=== PATIENT | female | born 1935 | race Caucasian/White ===

== ENCOUNTER 2025-10-15 09:33 | Inpatient (IN) | payer OTHER, MEDICAID ==
[~2025-10-15] VITALS: Ht 195.6 cm; Wt 49.4 kg
[2025-10-15] VITALS (54 sets, daily range): BP systolic 44–144; BP diastolic 26–123; PULSE 60–74; RESP 8–28; TEMP 36.3068–36.7; O2SAT 78–97
[2025-10-15] MEDS: ONDANSETRON HCL 4MG/2ML INJ IV ONE (10:10)
[2025-10-15] MEDS: MORPHINE SULFATE 4 MG/ML INJ (FOR IV/IM USE) IV ONE (10:10)
[2025-10-15 10:16] LABS: BASOPHILS % 2.2 % (0.0-2.0); EOSINOPHILS % 0.5 % (0.0-5.0); HEMATOCRIT. 36.2 % (36.0-48.0); HEMOGLOBIN. 11.3 g/dL (12.0-16.0); LYMPHOCYTES % 24.2 % (20.0-50.0); MEAN PLATELET VOLUME 9.7 fl (7.4-10.4); MONOCYTES % 6.8 % (2.0-8.0); NEUTROPHILS % 66.3 % (40.0-76.0); PLATELET 82 x1000/uL (130-400); RED BLOOD CELL COUNT 3.57 mill/uL (4.2-5.4); RED CELL DISTRIBUTION WIDTH 16.5 % (11.6-14.6)
[2025-10-15] MEDS: SODIUM CHLORIDE 0.9% 1,000 ML IV ONE (10:22)
[2025-10-15 10:31] LABS: INR 1.1
[2025-10-15 10:32] LABS: CREATININE 1.1 mg/dL (0.6-1.0); ETHANOL BLOOD < 10 mg/dL (<10); UREA NITROGEN BLOOD 28 mg/dL (9-23)
[2025-10-15 10:33] LABS: PROTEIN TOTAL 7.5 g/dL (6.0-8.3); TROPONIN I HIGH SENSITIVITY 16 ng/L (3.0-34)
[2025-10-15 10:34] LABS: ASPARTATE AMINOTRANSFERASE 30 IU/L (<34); BILIRUBIN DIRECT 0.2 mg/dL (<=3.0); BILIRUBIN TOTAL 0.8 mg/dL (0.1-1.0)
[2025-10-15] MEDS: IOHEXOL-350 100 ML BOTTLE ONE ×2 (10:53→12:29)
[2025-10-15] MEDS: NOREPINEPHRINE 8MG/250ML PMX 250 ML IV ONE (12:06)
[2025-10-15 13:29] LABS: PLATELET 82 x1000/uL (130-400); RED BLOOD CELL COUNT 3.55 mill/uL (4.2-5.4); RED CELL DISTRIBUTION WIDTH 16.5 % (11.6-14.6)
[2025-10-15] MEDS: CEFTRIAXONE 1GM/50ML 50 ML IV ONE (13:54)
[2025-10-15 14:05] LABS: TROPONIN I HIGH SENSITIVITY 20 ng/L (3.0-34)
[2025-10-15] MEDS: NOREPINEPHRINE 8MG/250ML PMX 250 ML IV PRN (16:27)
[2025-10-15] MEDS ORDERED: PHENYLEPHRINE 50MG/250ML PMX 250 ML IV PRN (16:30)
[2025-10-15] MEDS ORDERED: ACETAMINOPHEN 325MG TABLET PO PRN ×2 (16:45)
[2025-10-15] MEDS ORDERED: IPRATROPIUM/ALBUTEROL 0.5-3(2.5)MG/3ML NEB HHN PRN (16:45)
[2025-10-15] MEDS ORDERED: DOCUSATE SODIUM 100MG CAPSULE PO PRN (16:45)
[2025-10-15] MEDS ORDERED: MAGNESIUM/ALUMINUM HYDROXIDE/SIMETHICONE 30ML UDC PO PRN (16:45)
[2025-10-15] MEDS ORDERED: MORPHINE SULFATE 4 MG/ML INJ (FOR IV/IM USE) IV PRN (16:45)
[2025-10-15] MEDS ORDERED: ONDANSETRON HCL 4MG/2ML INJ IV PRN (16:45)
[2025-10-15] MEDS: PHENYLEPHRINE 50 MG in DEXTROSE 5% WATER 250 ML IV PRN (16:52)
[2025-10-15] MEDS: SODIUM CHLORIDE 0.9% (SEPSIS BOLUS) IV NR (17:07)
[2025-10-15] MEDS ORDERED: NALOXONE HCL 0.4MG/ML VIAL IV PRN (17:45)
[2025-10-15] MEDS: INSULIN LISPRO 100 UNITS/ML SUBCUT SCH (18:20)
[2025-10-15] MEDS: MIDODRINE HCL 5MG TABLET PO SCH (18:25)
[2025-10-15] MEDS: BLOOD SUGAR DIAGNOSTIC STRIP TEST SCH (18:26)
[2025-10-15] MEDS: DEXTROSE 50% WATER 50ML SYRINGE IV PRN (18:27)
[2025-10-15] MEDS: SODIUM CHLORIDE 0.9% 500 ML IV NR (21:53)
[2025-10-15] MEDS: VASOPRESSIN 20 UNIT in SODIUM CHLORIDE 0.9% 99 ML IV PRN (23:49)
[2025-10-15] MEDS: NOREPINEPHRINE 32 MG in DEXT 5% WATER 218 ML IV PRN (23:50)
[2025-10-15] MEDS: DOPAMINE 400MG/250ML PREMIX 250 ML IV ONE (23:54)
[2025-10-16] VITALS (38 sets, daily range): BP systolic 33–109; BP diastolic 14–86; PULSE 0–60; RESP 0–17; O2SAT 78–100
[2025-10-16] MEDS ORDERED: DOPAMINE 400MG/250ML PREMIX 250 ML IV ONE
[2025-10-16 00:27] LABS: BG BASE EXCESS -13.1 mmol/L (-2.0-3.0); BG CARBOXYHEMOGLOBIN 0.9 % (0.5-1.5); BG DEOXYHEMOGLOBIN 0.3 % (0.0-5.0); BG FRACTION INSPIRED OXYGEN 100; BG HCO3 ACT 16.1 mmol/L (21.0-28.0); BG METHEMOGLOBIN 0.0 % (0.5-1.5); BG OXYGEN SATURATION 99.7 % (94.0-98.0); BG OXYHEMOGLOBIN 98.8 % (94.0-98.0); BG PCO2 51.4 mmHg (32.0-45.0); BG PH 7.114 (7.350-7.450); BG PO2 389.6 mmHg (83.0-108.0); BG SAMPLE SITE LEFT FEMORAL; BG TOTAL HEMOGLOBIN 11.8 g/dL (12.0-16.0); BG VENT MODE MASK - NRB
[2025-10-16] MEDS: SODIUM BICARBONATE 8.4% 50MEQ/50ML SYR IV NR (00:34)
[2025-10-16] MEDS: KETOROLAC 15MG/ML VIAL IV PRN (01:11)
[2025-10-16] MEDS: MORPHINE SULFATE 4 MG/ML INJ (FOR IV/IM USE) IV PRN (02:45)
[2025-10-16 03:33] LABS: TROPONIN I HIGH SENSITIVITY 60 ng/L (3.0-34)
[2025-10-16] MEDS: LORAZEPAM 2MG/ML UD SYRINGE IV PRN (03:57)
[2025-10-16] MEDS: MORPHINE SULFATE 2 MG/ML INJ (NOT FOR IM USE) IV PRN (03:57)
[2025-10-16] MEDS ORDERED: FAMOTIDINE 20MG/2ML VIAL IV SCH (09:00)
[2025-10-16] MEDS ORDERED: PANTOPRAZOLE SODIUM 40 MG/VIAL IV SCH (09:00)
== END 2025-10-16 09:50 | DRG 533 ==
LOC: ER 09:33 → CVICU 13:04 → EDBEDREQSVC 13:07 → EDBEDREQTM 13:11 → EDBEDREQ 13:11 → ENRESERV 13:29
PROVIDERS: ADMIT Internal Medicine; ATTEND Internal Medicine
PROC: 30233N1 Transfusion of Nonautologous Red Blood Cells into Peripheral Vein, Percutaneous Approach (ICD-10-PCS; principal; 2025-10-15)
PROC: 06HY33Z Insertion of Infusion Device into Lower Vein, Percutaneous Approach (ICD-10-PCS; 2025-10-16)
PROC: B54BZZA Ultrasonography of Right Lower Extremity Veins, Guidance (ICD-10-PCS; 2025-10-16)
DX: S72.492A Other fracture of lower end of left femur, initial encounter for closed fracture (principal); R57.1 Hypovolemic shock; E87.20 Acidosis, unspecified; M48.56XA Collapsed vertebra, not elsewhere classified, lumbar region, initial encounter for fracture; M97.02XA Periprosthetic fracture around internal prosthetic left hip joint, initial encounter; D69.6 Thrombocytopenia, unspecified; J96.10 Chronic respiratory failure, unspecified whether with hypoxia or hypercapnia; Z79.01 Long term (current) use of anticoagulants; I13.0 Hypertensive heart and chronic kidney disease with heart failure and stage 1 through stage 4 chronic kidney disease, or unspecified chronic kidney disease; D50.0 Iron deficiency anemia secondary to blood loss (chronic); N18.9 Chronic kidney disease, unspecified; I50.9 Heart failure, unspecified; Z66 Do not resuscitate; J84.10 Pulmonary fibrosis, unspecified; M81.0 Age-related osteoporosis without current pathological fracture; I48.0 Paroxysmal atrial fibrillation; K56.41 Fecal impaction; Z96.653 Presence of artificial knee joint, bilateral; R73.9 Hyperglycemia, unspecified; W18.39XA Other fall on same level, initial encounter; I95.9 Hypotension, unspecified; S70.12XA Contusion of left thigh, initial encounter; Z51.5 Encounter for palliative care; Z95.0 Presence of cardiac pacemaker; Z79.899 Other long term (current) drug therapy; Z99.81 Dependence on supplemental oxygen; Y93.89 Activity, other specified; Y92.89 Other specified places as the place of occurrence of the external cause; Y99.8 Other external cause status
CPT/HCPCS: 36415; 36600; 71045; 71275; 72128; 72131; 72191; 73502; 73552; 73560; 73590; 73706; 74174; 80048; 80076; 80320; 82375; 82550; 82805; 82962; 83605; 83880; 84145; 84484; 85014; 85018; 85025; 85027; 86850; 86900; 86920; 93005; 99291; J0696; J1265; J1885; J2060; J2270; J2371; J2405; J3490; J7030; J7060; P9016; Q9967; G0480